=== PATIENT | male | born 1980 | race Caucasian/White ===

== ENCOUNTER 2018-08-09 18:58 | Emergency (ER) | payer OTHER ==
[~2018-08-09] VITALS: Ht 182.9 cm; Wt 72.6 kg
[~2018-08-09 18:58] MED LIST: ACET325; ALBU90OI INH; ALPR1 PO; ATEN25; BUTONI; Bactrim Ds Tab1 EACH PO; CEPH500 PO; CIPR500 PO; CITA20 PO; CLON2 PO; CODACE30 PO; CYCL10; CYCL10 PO; Cleocin HCl150 MG PO; Cleocin HCl300 MG PO; DEXA4 PO; DILT120 PO; EXCEDRIN MIGRAINE; HYDACE10B; HYDACE10B PO; HYDACE5; HYDACE5 PO; HYDACE5325 PO; HYDMOR4 PO; IBUHYD; IBUP600 PO; IBUP800 PO; IBUPROFEN/TYLENOL; Keflex500 MG PO; LORA.5 PO; LORA1; LORA1 PO; LORA2; LORA2 PO; LYRICA PO; META800 PO; METO10 PO; METR500 PO; MINO100 PO; NAPR500 PO; NAPR550; NAPR550 PO; Norco 5-325 Ta1 EACH PO; OXYACE5T PO; OXYC5; OXYCODONE 5 MG; PENVK500 PO; PRED20 PO; PROC25S PR; PROM25; PROM25 PO; PROM25S PR; RIZA; RXCYCL10 PO; RXHYD5325 PO; RXLORA1 PO; RXNAPNA550 PO; RXOXYACE PO; SULTRIDS PO; SUMA25 PO; SUMA6I; TRAM50 PO; TRIM100 PO; TYLENOL; Ultram50 MG PO; ZOLM5; [UNRECOGNIZED DRUG - REMARK]
[2018-08-09] MEDS ORDERED: Bactrim Ds Tab1 EACH PO (20:34)
== END 2018-08-09 20:55 | disposition home or self-care (01) ==
LOC: ER 18:58
DX: S81.811A Laceration without foreign body, right lower leg, initial encounter (principal); L03.115 Cellulitis of right lower limb; F17.210 Nicotine dependence, cigarettes, uncomplicated; W26.8XXA Contact with other sharp object(s), not elsewhere classified, initial encounter
CPT/HCPCS: 99282

== ENCOUNTER 2020-07-15 11:06 | Emergency (ER) | payer OTHER ==
[~2020-07-15] VITALS: Ht 182.9 cm; Wt 74.8 kg
== END 2020-07-15 12:01 | disposition home or self-care (01) ==
LOC: ER 11:06
DX: S90.32XA Contusion of left foot, initial encounter (principal); W20.8XXA Other cause of strike by thrown, projected or falling object, initial encounter; Y93.89 Activity, other specified
CPT/HCPCS: 73630; 99283-25